=== PATIENT | male | born 1960 | race Caucasian/White ===

== ENCOUNTER 2016-07-28 11:12 | Inpatient (IN) | payer SELFPAY ==
[2016-07-28] VITALS (9 sets, daily range): BP systolic 116–135; BP diastolic 46–97
[~2016-07-28] VITALS: Ht 165.1 cm; Wt 79.4 kg
[2016-07-28] MEDS ORDERED: SODIUM CHLORIDE 0.9% 1000ML BAG (SEPSIS BOLUS) IV ONE (11:30)
[2016-07-28] MEDS ORDERED: PANTOPRAZOLE SODIUM 40 MG/VIAL IV STA (11:30)
[2016-07-28] MEDS ORDERED: PANTOPRAZOLE 80 MG in SODIUM CHLORIDE 0.9% 100 ML IV STA (11:30)
[2016-07-28 11:53] LABS: BASOPHILS % 0.2 % (0.0-2.0); HEMATOCRIT. 25.9 % (42.0-52.0); HEMOGLOBIN. 9.1 g/dL (14.0-18.0); LYMPHOCYTES % 7.8 % (20.0-50.0); MEAN CORPUSCULAR HEMOGLOBIN 32.9 pg (28.0-32.0); MEAN CORPUSCULAR VOLUME 94.1 fL (80.0-94.0); MEAN PLATELET VOLUME 8.7 fl (7.4-10.4); MONOCYTES % 11.6 % (2.0-8.0); NEUTROPHILS % 80.4 % (40.0-76.0); PLATELET 72 x1000/uL (130-400); RED BLOOD CELL COUNT 2.75 mill/uL (4.7-6.1); RED CELL DISTRIBUTION WIDTH 13.3 % (11.6-14.6)
[2016-07-28 12:02] LABS: INR 1.6; PROTHROMBIN TIME 16.7 sec
[2016-07-28 12:09] LABS: CARBON DIOXIDE 25 mEq/L (21-32); CHLORIDE 101 mEq/L (98-107); TROPONIN I 0.03 ng/mL (0.00-0.04)
[2016-07-28] MEDS ORDERED: OCTREOTIDE 1,000 MCG in SODIUM CHLORIDE 0.9% 100 ML IV STA (12:32)
[2016-07-28] MEDS ORDERED: OCTREOTIDE ACETATE 50 MCG/ML 1ML IV STA (12:32)
[2016-07-28] MEDS ORDERED: OCTREOTIDE 1,000 MCG in SODIUM CHLORIDE 0.9% 98 ML IV STA (12:44)
[2016-07-28] MEDS ORDERED: PANTOPRAZOLE 80 MG in SODIUM CHLORIDE 0.9% 100 ML IV SCH (13:30)
[2016-07-28] MEDS ORDERED: ONDANSETRON HCL 4MG/2ML VIAL IV PRN (13:30)
[2016-07-28] MEDS ORDERED: OCTREOTIDE 1,000 MCG in SODIUM CHLORIDE 0.9% 100 ML IV SCH (13:30)
[2016-07-28] MEDS ORDERED: LORAZEPAM 2MG/ML CPJ IV PRN (13:30)
[2016-07-28] MEDS ORDERED: IPRATROPIUM/ALBUTEROL 0.5-3(2.5)MG/3ML NEB INH PRN (13:30)
[2016-07-28] MEDS ORDERED: NITROGLYCERIN 0.4MG TABLET SL SL PRN (13:30)
[2016-07-28] MEDS ORDERED: GUAIFENESIN 200MG/10ML SUGAR FREE UDC PO PRN (13:30)
[2016-07-28] MEDS ORDERED: MVI, ADULT NO.1 10 ML, FOLIC ACID 1 MG, THIAMINE HCL 100 MG in SODIUM CHLORIDE 0.9% 1,0... IV SCH ×4 (15:30)
[2016-07-28 17:15] LABS: VITAMIN B12 SERUM 730 pg/mL (211-911)
[2016-07-28 17:17] LABS: FOLIC ACID (FOLATE) SERUM > 20.00 ng/mL (>5.38)
[2016-07-28] MEDS ORDERED: ZOLPIDEM TARTRATE 5MG TABLET PO PRN (21:00)
[2016-07-28] MEDS: ACETAMINOPHEN 325MG TABLET PO PRN (21:02)
[2016-07-28] MEDS: PANTOPRAZOLE 80 MG in SODIUM CHLORIDE 0.9% 100 ML IV SCH (21:49)
[2016-07-29] VITALS (12 sets, daily range): BP systolic 118–157; BP diastolic 60–90
[2016-07-29] MEDS: DEXT 5%/0.45% NACL 1000ML 1,000 ML IV SCH ×3 (01:18→20:01)
[2016-07-29] MEDS: PANTOPRAZOLE 80 MG in SODIUM CHLORIDE 0.9% 100 ML IV SCH ×3 (06:21→22:52)
[2016-07-29] MEDS ORDERED: SODIUM CHLORIDE 0.9% 10ML VIAL ONE (08:31)
[2016-07-29] MEDS ORDERED: SIMETHICONE 40 MG/0.6 ML 30ML ONE ×2 (08:31→10:09)
[2016-07-29] MEDS ORDERED: MIDAZOLAM HCL 5 MG/5 ML VIAL ONE (10:09)
[2016-07-29] MEDS ORDERED: FENTANYL CITRATE/PF 50MCG/ML 2ML VIAL ONE (10:09)
[2016-07-29] MEDS ORDERED: FENTANYL CITRATE/PF 50MCG/ML 2ML VIAL IV ONE (10:37)
[2016-07-29] MEDS ORDERED: MIDAZOLAM HCL 5 MG/5 ML VIAL IV ONE (10:50)
[2016-07-29 12:43] LABS: BASOPHILS % 0.2 % (0.0-2.0); EOSINOPHILS % 0.2 % (0.0-5.0); HEMATOCRIT. 25.7 % (42.0-52.0); HEMOGLOBIN. 8.8 g/dL (14.0-18.0); LYMPHOCYTES % 8.3 % (20.0-50.0); MEAN CORPUSCULAR HEMOGLOBIN 32.6 pg (28.0-32.0); MEAN PLATELET VOLUME 9.3 fl (7.4-10.4); MONOCYTES % 13.3 % (2.0-8.0); RED BLOOD CELL COUNT 2.71 mill/uL (4.7-6.1); RED CELL DISTRIBUTION WIDTH 14.4 % (11.6-14.6)
[2016-07-29 12:52] LABS: PLATELET 45 x1000/uL (130-400)
[2016-07-29 13:35] LABS: CARBON DIOXIDE 26 mEq/L (21-32); CHLORIDE 108 mEq/L (98-107)
[2016-07-29] MEDS: ACETAMINOPHEN 325MG TABLET PO PRN ×2 (15:45→20:01)
[2016-07-29] MEDS: PIPERACILLIN/TAZ 3.375G PREMIX 50 ML IV SCH (20:02)
[2016-07-29] MEDS ORDERED: OCTREOTIDE ACETATE 50 MCG/ML 1ML IV NR (23:30)
[2016-07-30] VITALS (18 sets, daily range): BP systolic 93–137; BP diastolic 54–89
[2016-07-30] MEDS: OCTREOTIDE 1,000 MCG in SODIUM CHLORIDE 0.9% 100 ML IV PRN ×2 (00:38→17:18)
[2016-07-30] MEDS: PIPERACILLIN/TAZ 3.375G PREMIX 50 ML IV SCH ×3 (03:54→20:20)
[2016-07-30] MEDS: DEXT 5%/0.45% NACL 1000ML 1,000 ML IV SCH (05:51)
[2016-07-30 06:49] LABS: CARBON DIOXIDE 24 mEq/L (21-32); CHLORIDE 106 mEq/L (98-107)
[2016-07-30 06:59] LABS: HEPATITIS B SURFACE ANTIGEN NEGATIVE
[2016-07-30 07:25] LABS: BASOPHILS % 0.2 % (0.0-2.0); EOSINOPHILS % 0.8 % (0.0-5.0); HEMATOCRIT. 24.1 % (42.0-52.0); HEMOGLOBIN. 8.4 g/dL (14.0-18.0); LYMPHOCYTES % 9.2 % (20.0-50.0); MEAN CORPUSCULAR HEMOGLOBIN 32.9 pg (28.0-32.0); MEAN CORPUSCULAR VOLUME 94.6 fL (80.0-94.0); MEAN PLATELET VOLUME 9.6 fl (7.4-10.4); MONOCYTES % 13.1 % (2.0-8.0); NEUTROPHILS % 76.7 % (40.0-76.0); RED BLOOD CELL COUNT 2.54 mill/uL (4.7-6.1); RED CELL DISTRIBUTION WIDTH 14.3 % (11.6-14.6)
[2016-07-30 07:27] LABS: HEPATITIS B CORE AB IGM NEGATIVE
[2016-07-30 07:29] LABS: HEPATITIS A AB IGM NEGATIVE (NEGATIVE)
[2016-07-30 10:14] LABS: PLATELET 46 x1000/uL (130-400); PLATELET ESTIMATE MARKEDLY DECREASED
[2016-07-30] MEDS: PANTOPRAZOLE 80 MG in SODIUM CHLORIDE 0.9% 100 ML IV SCH ×2 (11:17→23:24)
[2016-07-30] MEDS: ACETAMINOPHEN 325MG TABLET PO PRN (20:13)
[2016-07-30] MEDS: SODIUM CHLORIDE 0.45% 1,000 ML IV SCH (20:18)
[2016-07-31] VITALS (9 sets, daily range): BP systolic 95–124; BP diastolic 53–77
[2016-07-31] MEDS: PIPERACILLIN/TAZ 3.375G PREMIX 50 ML IV SCH ×2 (04:29→12:05)
[2016-07-31] MEDS: SODIUM CHLORIDE 0.45% 1,000 ML IV SCH ×2 (05:00→08:20)
[2016-07-31 06:33] LABS: BASOPHILS % 0.2 % (0.0-2.0); EOSINOPHILS % 1.8 % (0.0-5.0); HEMATOCRIT. 24.6 % (42.0-52.0); HEMOGLOBIN. 8.5 g/dL (14.0-18.0); LYMPHOCYTES % 13.7 % (20.0-50.0); MEAN CORPUSCULAR HEMOGLOBIN 33.1 pg (28.0-32.0); MEAN PLATELET VOLUME 9.7 fl (7.4-10.4); MONOCYTES % 14.4 % (2.0-8.0); NEUTROPHILS % 69.9 % (40.0-76.0); PLATELET 55 x1000/uL (130-400); RED BLOOD CELL COUNT 2.56 mill/uL (4.7-6.1); RED CELL DISTRIBUTION WIDTH 13.9 % (11.6-14.6)
[2016-07-31 07:16] LABS: CARBON DIOXIDE 26 mEq/L (21-32); CHLORIDE 105 mEq/L (98-107)
[2016-07-31] MEDS: PANTOPRAZOLE 80 MG in SODIUM CHLORIDE 0.9% 100 ML IV SCH (09:13)
[2016-07-31] MEDS ORDERED: PROPRANOLOL HCL 10MG TABLET PO SCH (12:30)
== END 2016-07-31 14:15 | disposition home or self-care (01) | DRG 229 ==
LOC: ER 11:33 → 5EST 12:24
PROVIDERS: ADMIT Internal Medicine; ATTEND Internal Medicine
PROC: 30233N1 Transfusion of Nonautologous Red Blood Cells into Peripheral Vein, Percutaneous Approach (ICD-10-PCS; 2016-07-28)
PROC: 0DJ08ZZ Inspection of Upper Intestinal Tract, Via Natural or Artificial Opening Endoscopic (ICD-10-PCS; 2016-07-29)
PROC: 06L34CZ Occlusion of Esophageal Vein with Extraluminal Device, Percutaneous Endoscopic Approach (ICD-10-PCS; principal; 2016-07-29 10:00)
DX: I85.01 Esophageal varices with bleeding (principal); E43 Unspecified severe protein-calorie malnutrition; D69.59 Other secondary thrombocytopenia; K76.6 Portal hypertension; K70.31 Alcoholic cirrhosis of liver with ascites; R16.1 Splenomegaly, not elsewhere classified; B17.9 Acute viral hepatitis, unspecified; K31.9 Disease of stomach and duodenum, unspecified; D62 Acute posthemorrhagic anemia; I86.4 Gastric varices; K80.20 Calculus of gallbladder without cholecystitis without obstruction; E11.9 Type 2 diabetes mellitus without complications; F10.10 Alcohol abuse, uncomplicated; Y90.9 Presence of alcohol in blood, level not specified; Z68.30 Body mass index [BMI] 30.0-30.9, adult; Z71.41 Alcohol abuse counseling and surveillance of alcoholic
CPT/HCPCS: 36415; 71010; 76700; 80053; 82105; 82607; 82746; 83036; 83690; 84484; 85025; 85610; 85730; 86705; 86709; 86803; 86850; 86900; 86920; 87040; 87086; 87340; 93005; 96361; 96365; 96375; 99291; A4216; A6261; C9113; G0482; J2250; J2354; J2543; J3010; J3411; J3490; J7030; J7050; P9016

== ENCOUNTER 2016-08-28 09:18 | Emergency (ER) | payer SELFPAY | END 2016-08-28 14:50 | disposition left against medical advice (07) | LOC: ER 14:15 | DX: M79.672 Pain in left foot (principal); Z53.21 Procedure and treatment not carried out due to patient leaving prior to being seen by health care provider ==

== ENCOUNTER 2018-03-22 07:07 | Inpatient (IN) | payer MEDICAID, OTHER ==
[~2018-03-22] VITALS: Ht 152.4 cm; Wt 73.0 kg
[2018-03-22] VITALS (7 sets, daily range): BP systolic 122–140; BP diastolic 78–88
[2018-03-22] MEDS ORDERED: OCTREOTIDE 1,000 MCG in SODIUM CHLORIDE 0.9% 100 ML IV STA (07:41)
[2018-03-22] MEDS ORDERED: OCTREOTIDE ACETATE 50 MCG/ML 1ML IV STA (07:41)
[2018-03-22] MEDS ORDERED: PANTOPRAZOLE 80 MG in SODIUM CHLORIDE 0.9% 100 ML IV STA (07:41)
[2018-03-22] MEDS ORDERED: SODIUM CHLORIDE 0.9% 1,000 ML IV ONE (07:41)
[2018-03-22] MEDS ORDERED: PANTOPRAZOLE SODIUM 40 MG/VIAL IV STA (07:41)
[2018-03-22 08:36] LABS: BASOPHILS % 0.6 % (0.0-2.0); EOSINOPHILS % 1.3 % (0.0-5.0); HEMATOCRIT. 30.9 % (42.0-52.0); HEMOGLOBIN. 10.5 g/dL (14.0-18.0); LYMPHOCYTES % 22.9 % (20.0-50.0); MEAN CORPUSCULAR HEMOGLOBIN 32.4 pg (28.0-32.0); MEAN CORPUSCULAR VOLUME 95.8 fL (80.0-94.0); MEAN PLATELET VOLUME 9.8 fl (7.4-10.4); MONOCYTES % 12.4 % (2.0-8.0); NEUTROPHILS % 62.8 % (40.0-76.0); PLATELET 62 x1000/uL (130-400); RED BLOOD CELL COUNT 3.23 mill/uL (4.7-6.1); RED CELL DISTRIBUTION WIDTH 13.6 % (11.6-14.6)
[2018-03-22 08:41] LABS: CHLORIDE 98 mEq/L (98-107)
[2018-03-22 08:43] LABS: INR 1.5; PROTHROMBIN TIME 14.5 sec (9.1-11.1)
[2018-03-22] MEDS ORDERED: CEFTRIAXONE 1 G PREMIX 50 ML IV ONE (09:15)
[2018-03-22] MEDS ORDERED: SODIUM CHLORIDE 0.9% 1000ML BAG (SEPSIS BOLUS) IV ONE (09:15)
[2018-03-22] MEDS ORDERED: PANTOPRAZOLE SODIUM 40 MG/VIAL IV ONE (09:29)
[2018-03-22] MEDS ORDERED: OCTREOTIDE 1,000 MCG in SODIUM CHLORIDE 0.9% 98 ML IV ONE (09:45)
[2018-03-22] MEDS ORDERED: NA PHOS,M-B/NA PHOS,DI-BA ENEMA 118ML PR PRN (11:00)
[2018-03-22] MEDS ORDERED: MAGNESIUM/ALUMINUM HYDROXIDE/SIMETHICONE 30ML UDC PO PRN (11:00)
[2018-03-22] MEDS ORDERED: GUAIFENESIN 200MG/10ML SUGAR FREE UDC PO PRN (11:00)
[2018-03-22] MEDS ORDERED: DOCUSATE SODIUM 100MG CAPSULE PO PRN (11:00)
[2018-03-22] MEDS ORDERED: ONDANSETRON HCL 4MG/2ML INJ IV PRN (11:00)
[2018-03-22] MEDS ORDERED: HYDROCODONE/ACETAMINOPHEN 5/325MG TABLET PO PRN (11:00)
[2018-03-22] MEDS ORDERED: IPRATROPIUM/ALBUTEROL 0.5-3(2.5)MG/3ML NEB INH PRN (11:00)
[2018-03-22] MEDS ORDERED: LORAZEPAM 2MG/ML CPJ IV PRN (11:00)
[2018-03-22] MEDS ORDERED: ACETAMINOPHEN 325MG TABLET PO PRN (11:00)
[2018-03-22] MEDS ORDERED: DIPHENHYDRAMINE 50MG/ML VIAL IV PRN (11:00)
[2018-03-22] MEDS ORDERED: CLONIDINE 0.1MG TABLET PO PRN (11:00)
[2018-03-22] MEDS ORDERED: MORPHINE SULFATE 4 MG/ML CPJ (NOT FOR IM USE) IV PRN (11:00)
[2018-03-22 13:33] LABS: CLARITY URINE CLEAR (CLEAR); COLOR URINE YELLOW (YELLOW); KETONES URINE 1+ (NEGATIVE); LEUKOCYTE ESTERASE URINE NEGATIVE (NEGATIVE); NITRITE URINE NEGATIVE (NEGATIVE); OCCULT BLOOD URINE NEGATIVE (NEGATIVE); PH URINE 6.5 (4.5-8.0); PROTEIN URINE NEGATIVE (NEGATIVE); SPECIFIC GRAVITY URINE 1.026 (1.005-1.030)
[2018-03-22 14:57] LABS: TOTAL IRON BINDING CAPACITY 279 ug/dL (250-450)
[2018-03-22 15:14] LABS: FOLIC ACID (FOLATE) SERUM 17.5 ng/mL (>5.38)
[2018-03-22] MEDS ORDERED: MIDAZOLAM HCL 2 MG/2 ML VIAL ONE (15:46)
[2018-03-22] MEDS ORDERED: FENTANYL CITRATE/PF 50MCG/ML 2ML VIAL ONE (15:46)
[2018-03-22] MEDS ORDERED: DIPHENHYDRAMINE 50MG/ML VIAL ONE (15:46)
[2018-03-22] MEDS ORDERED: PROPOFOL 200MG/20ML VIAL IV ONE (15:47)
[2018-03-22] MEDS ORDERED: LIDOCAINE HCL/PF 1% 10 MG/ML 5ML VIAL ONE (15:47)
[2018-03-22] MEDS ORDERED: LEVOFLOXACIN 500MG PREMIX 100 ML IV SCH (16:00)
[2018-03-22] MEDS ORDERED: OCTREOTIDE 1,000 MCG in SODIUM CHLORIDE 0.9% 98 ML IV SCH (16:00)
[2018-03-22] MEDS ORDERED: HYDROMORPHONE HCL/PF 2MG/ML CPJ IV PRN (16:45)
[2018-03-22] MEDS: OCTREOTIDE 1,000 MCG in SODIUM CHLORIDE 0.9% 98 ML IV SCH (18:18)
[2018-03-22] MEDS: DEXT 5%/0.45% NACL 1000ML 1,000 ML IV SCH (18:19)
[2018-03-22 18:57] LABS: HEMATOCRIT 27.2 % (42.0-52.0); HEMOGLOBIN 9.5 g/dL (14.0-18.0)
[2018-03-22 19:02] LABS: CHLORIDE 105 mEq/L (98-107)
[2018-03-22] MEDS: PANTOPRAZOLE SODIUM 40 MG/VIAL IV SCH (21:12)
[2018-03-23] VITALS (12 sets, daily range): BP systolic 113–143; BP diastolic 74–91
[2018-03-23 01:04] LABS: HEMATOCRIT 27.4 % (42.0-52.0); HEMOGLOBIN 9.5 g/dL (14.0-18.0)
[2018-03-23 08:29] LABS: BASOPHILS % 0.6 % (0.0-2.0); EOSINOPHILS % 0.7 % (0.0-5.0); HEMATOCRIT. 27.5 % (42.0-52.0); HEMOGLOBIN. 9.5 g/dL (14.0-18.0); LYMPHOCYTES % 20.9 % (20.0-50.0); MEAN CORPUSCULAR VOLUME 95.5 fL (80.0-94.0); MEAN PLATELET VOLUME 9.8 fl (7.4-10.4); MONOCYTES % 13.6 % (2.0-8.0); NEUTROPHILS % 64.2 % (40.0-76.0); RED BLOOD CELL COUNT 2.88 mill/uL (4.7-6.1); RED CELL DISTRIBUTION WIDTH 13.5 % (11.6-14.6)
[2018-03-23 08:51] LABS: CHLORIDE 104 mEq/L (98-107)
[2018-03-23 08:59] LABS: PLATELET 50 x1000/uL (130-400)
[2018-03-23 09:03] LABS: LDL CHOLESTEROL 49 mg/dL (5-100)
[2018-03-23 09:04] LABS: HDL CHOLESTEROL 37 mg/dL (40-59)
[2018-03-23] MEDS ORDERED: PROPRANOLOL HCL 10MG TABLET PO NR (09:15)
[2018-03-23 10:08] LABS: T4 FREE 1.11 ng/dL (0.76-1.46)
[2018-03-23] MEDS: PANTOPRAZOLE SODIUM 40 MG/VIAL IV SCH ×2 (10:25→20:23)
[2018-03-23 11:09] LABS: PLATELET ESTIMATE MARKEDLY DECREASED
[2018-03-23] MEDS: OCTREOTIDE 1,000 MCG in SODIUM CHLORIDE 0.9% 98 ML IV SCH (11:19)
[2018-03-23] MEDS: DEXT 5%/0.45% NACL 1000ML 1,000 ML IV SCH (12:24)
[2018-03-23] MEDS: LEVOFLOXACIN 500MG PREMIX 100 ML IV SCH (14:37)
[2018-03-23 16:26] LABS: HEMATOCRIT 26.2 % (42.0-52.0); MEAN CORPUSCULAR HEMOGLOBIN 32.9 pg (28.0-32.0); MEAN CORPUSCULAR VOLUME 96.3 fL (80.0-94.0); PLATELET 51 x1000/uL (130-400); RED BLOOD CELL COUNT 2.72 mill/uL (4.7-6.1); RED CELL DISTRIBUTION WIDTH 13.2 % (11.6-14.6)
[2018-03-23 16:43] LABS: CREATINE KINASE 65 IU/L (39-308)
[2018-03-23 16:44] LABS: CREATINE KINASE MB FRACTION 1.2 ng/mL (0.5-3.6)
[2018-03-23 18:47] LABS: HEMATOCRIT 27.8 % (42.0-52.0); HEMOGLOBIN 9.6 g/dL (14.0-18.0)
[2018-03-23] MEDS: PROPRANOLOL HCL 10MG TABLET PO SCH (20:23)
[2018-03-24] VITALS (12 sets, daily range): BP systolic 109–135; BP diastolic 69–97
[2018-03-24 01:32] LABS: HEMATOCRIT 27.1 % (42.0-52.0); HEMOGLOBIN 9.2 g/dL (14.0-18.0)
[2018-03-24 01:50] LABS: CREATINE KINASE 71 IU/L (39-308); CREATINE KINASE MB FRACTION 1.3 ng/mL (0.5-3.6)
[2018-03-24] MEDS: OCTREOTIDE 1,000 MCG in SODIUM CHLORIDE 0.9% 98 ML IV SCH (06:00)
[2018-03-24 07:14] LABS: BASOPHILS % 0.6 % (0.0-2.0); EOSINOPHILS % 3.7 % (0.0-5.0); HEMATOCRIT. 28.1 % (42.0-52.0); HEMOGLOBIN. 9.7 g/dL (14.0-18.0); LYMPHOCYTES % 27.7 % (20.0-50.0); MEAN CORPUSCULAR HEMOGLOBIN 33.2 pg (28.0-32.0); MEAN CORPUSCULAR VOLUME 96.4 fL (80.0-94.0); MEAN PLATELET VOLUME 9.9 fl (7.4-10.4); MONOCYTES % 14.1 % (2.0-8.0); NEUTROPHILS % 53.9 % (40.0-76.0); PLATELET 54 x1000/uL (130-400); RED BLOOD CELL COUNT 2.91 mill/uL (4.7-6.1); RED CELL DISTRIBUTION WIDTH 13.5 % (11.6-14.6)
[2018-03-24 07:26] LABS: CHLORIDE 105 mEq/L (98-107)
[2018-03-24 07:38] LABS: CREATINE KINASE 63 IU/L (39-308)
[2018-03-24 07:40] LABS: CREATINE KINASE MB FRACTION < 1.0 ng/mL (0.5-3.6)
[2018-03-24] MEDS: PANTOPRAZOLE SODIUM 40 MG/VIAL IV SCH ×2 (08:30→21:18)
[2018-03-24] MEDS: PROPRANOLOL HCL 10MG TABLET PO SCH ×2 (08:33→21:18)
[2018-03-24] MEDS: DEXT 5%/0.45% NACL 1000ML 1,000 ML IV SCH (11:36)
[2018-03-24 13:23] LABS: T4 FREE 1.05 ng/dL (0.76-1.46)
[2018-03-24] MEDS: LEVOFLOXACIN 500MG PREMIX 100 ML IV SCH (14:51)
[2018-03-24 15:52] LABS: CREATINE KINASE 62 IU/L (39-308)
[2018-03-24] MEDS: LACTULOSE 20G/30ML UDC PO SCH (22:06)
[2018-03-24 23:44] LABS: CREATINE KINASE 58 IU/L (39-308); CREATINE KINASE MB FRACTION 1.3 ng/mL (0.5-3.6)
[2018-03-25] VITALS (7 sets, daily range): BP systolic 103–141; BP diastolic 64–88
[2018-03-25] MEDS: LACTULOSE 20G/30ML UDC PO SCH (05:13)
[2018-03-25 07:43] LABS: HEMATOCRIT 27.9 % (42.0-52.0); HEMOGLOBIN 9.6 g/dL (14.0-18.0); MEAN CORPUSCULAR HEMOGLOBIN 33.2 pg (28.0-32.0); MEAN CORPUSCULAR VOLUME 96.9 fL (80.0-94.0); PLATELET 52 x1000/uL (130-400); RED BLOOD CELL COUNT 2.88 mill/uL (4.7-6.1); RED CELL DISTRIBUTION WIDTH 13.7 % (11.6-14.6)
[2018-03-25] MEDS: PANTOPRAZOLE SODIUM 40 MG/VIAL IV SCH (08:27)
[2018-03-25] MEDS: PROPRANOLOL HCL 10MG TABLET PO SCH (08:27)
[2018-03-25 08:29] LABS: CREATINE KINASE 49 IU/L (39-308)
== END 2018-03-25 12:00 | disposition home or self-care (01) | DRG 280 ==
LOC: ER 07:26 → 3WST 07:56 → EDBEDREQ 09:12 → ENRESERV 12:06
PROVIDERS: ADMIT Internal Medicine; ATTEND Internal Medicine
PROC: 06L38CZ Occlusion of Esophageal Vein with Extraluminal Device, Via Natural or Artificial Opening Endoscopic (ICD-10-PCS; principal; 2018-03-22)
DX: K70.31 Alcoholic cirrhosis of liver with ascites (principal); I85.11 Secondary esophageal varices with bleeding; K92.0 Hematemesis; D68.9 Coagulation defect, unspecified; D69.59 Other secondary thrombocytopenia; R65.10 Systemic inflammatory response syndrome (SIRS) of non-infectious origin without acute organ dysfunction; E88.09 Other disorders of plasma-protein metabolism, not elsewhere classified; E44.1 Mild protein-calorie malnutrition; K76.6 Portal hypertension; K31.89 Other diseases of stomach and duodenum; I10 Essential (primary) hypertension; F10.20 Alcohol dependence, uncomplicated; J98.11 Atelectasis; D64.9 Anemia, unspecified
CPT/HCPCS: 36415; 71045; 76700; 80048; 80061; 82105; 82140; 82550; 82553; 82607; 82728; 82746; 83036; 83540; 83550; 83605; 83880; 84439; 84443; 84484; 85014; 85018; 85027; 85379; 86850; 86900; 93005; 93306; 96365; 96366; 96368; 96375; 99291; C9113; J0696; J1200; J1956; J2250; J2354; J2405; J2704; J3010; J3490; J7030; J7050

== ENCOUNTER 2020-06-04 10:40 | Emergency (ER) | payer MEDICAID ==
[~2020-06-04] VITALS: Ht 165.1 cm; Wt 70.0 kg
[2020-06-04 11:27] LABS: BASOPHILS % 0.7 % (0.0-2.0); EOSINOPHILS % 1.1 % (0.0-5.0); HEMATOCRIT. 24.2 % (42.0-52.0); HEMOGLOBIN. 7.8 g/dL (14.0-18.0); LYMPHOCYTES % 18.1 % (20.0-50.0); MEAN CORPUSCULAR HEMOGLOBIN 23.6 pg (28.0-32.0); MEAN CORPUSCULAR VOLUME 73.6 fL (80.0-94.0); MEAN PLATELET VOLUME 7.1 fl (7.4-10.4); MONOCYTES % 12.7 % (2.0-8.0); NEUTROPHILS % 67.4 % (40.0-76.0); PLATELET 101 x1000/uL (130-400); RED BLOOD CELL COUNT 3.29 mill/uL (4.7-6.1); RED CELL DISTRIBUTION WIDTH 16.4 % (11.6-14.6)
[2020-06-04 11:35] LABS: INR 1.3; PARTIAL THROMBOPLASTIN TIME 30.9 sec (23.4-31.0); PROTHROMBIN TIME 13.5 sec (9.6-11.0)
[2020-06-04] MEDS ORDERED: LIDOCAINE HCL 1% 20ML VIAL (Pyxis) INJ ONE (14:03)
[2020-06-04] MEDS ORDERED: SODIUM BICARBONATE 4% (2.4MEQ) 5ML VIAL IV ONE (14:04)
[2020-06-04 17:02] VITALS: BP 116/77
== END 2020-06-04 17:03 | disposition home or self-care (01) ==
LOC: ER 10:40
DX: K70.31 Alcoholic cirrhosis of liver with ascites (principal); D61.818 Other pancytopenia; Z20.822 Contact with and (suspected) exposure to COVID-19; F10.20 Alcohol dependence, uncomplicated; Y90.9 Presence of alcohol in blood, level not specified; I10 Essential (primary) hypertension; M79.89 Other specified soft tissue disorders
CPT/HCPCS: 36415; 49083; 85025; 85610; 85730; 87426; 93005; 99285; J3490; Z7610